=== PATIENT | male | born 1960 | race Caucasian/White ===

== ENCOUNTER 2018-05-30 05:56 | Emergency (ER) | payer SELFPAY ==
[2018-05-30 06:04] VITALS: RESP 16; TEMP 97
[2018-05-30 07:30] VITALS: BP 130/94; PULSE 74; O2SAT 97
== END 2018-05-30 07:21 | disposition home or self-care (01) | DRG 603 ==
LOC: ED 05:56
DX: L08.9 Local infection of the skin and subcutaneous tissue, unspecified (principal); B95.8 Unspecified staphylococcus as the cause of diseases classified elsewhere
CPT/HCPCS: 99282; 99283

== ENCOUNTER 2018-07-09 12:56 | Emergency (ER) | payer SELFPAY ==
[2018-07-09 12:56] VITALS: O2SAT 97
== END 2018-07-09 13:01 | disposition left against medical advice (07) | DRG 951 ==
LOC: ED 12:56
DX: Z53.21 Procedure and treatment not carried out due to patient leaving prior to being seen by health care provider (principal)
CPT/HCPCS: 99282